=== PATIENT | female | born 1975 | race Caucasian/White ===

== ENCOUNTER 2019-06-15 07:06 | Emergency (ER) | payer BC ==
[2019-06-15 07:22] VITALS: BP 151/90
--- NOTE | 2019-06-15 07:31 | UC ---
Throat Pain/Nasal Barrett HPI - HPI Summary HPI Summary: 44-year-old woman comes in with a chief complaint of sore throat. Started 4 days ago. Hurts more when she swallows.'s been taken ibuprofen which does help with the pain. No fevers measured. Has minimal rhinorrhea. She does have a cough she wonders if it's from her throat hurting. Initially felt like her throat was swollen. Has improved now. - History of Current Complaint Chief Complaint: UCGeneralIllness Stated Complaint: SORE THROAT Time Seen by Provider: 06/15/19 07:13 Hx Last Menstrual Period: 06/14/19 Pain Intensity: 4 - Allergies/Home Medications Allergies/Adverse Reactions: Allergies Allergy/AdvReac Type Severity Reaction Status Date / Time No Known Allergies Allergy Verified 06/15/19 07:14 Home Medications: Home Medications Dm/PE/Acetaminophen/Chlorphenr [Cold Multi-Symptom Day-Night] 1 each PO ONCE [History Confirmed 06/15/19] Ibuprofen TAB* [Motrin TAB* 800 MG] 800 mg PO ONCE 06/15/19 [History Confirmed 06/15/19] guaiFENesin [Mucinex] 600 mg PO ONCE 06/15/19 [History Confirmed 06/15/19] PMH/Surg Hx/FS Hx/Imm Hx Previously Healthy: Yes - Surgical History Surgical History: Yes Surgery Procedure, Year, and Place: sinus surgery 2010 - Family History Known Family History: Positive: Non-Contributory - Social History Alcohol Use: None Substance Use Type: None Smoking Status (MU): Never Smoked Tobacco Review of Systems All Other Systems Reviewed And Are Negative: Yes Constitutional: Positive: Other - see hpi Skin: Positive: Negative Eyes: Positive: Negative ENT: Positive: Sore Throat, Nasal Discharge, Sinus Congestion Respiratory: Positive: Cough Cardiovascular: Positive: Negative Gastrointestinal: Positive: Negative Motor: Positive: Negative Neurovascular: Positive: Negative Musculoskeletal: Positive: Negative Neurological: Positive: Negative Psychological: Positive: Negative Is Patient Immunocompromised?: No Physical Exam Triage Information Reviewed: Yes Appearance: No Pain Distress, Well-Nourished, Ill-Appearing - mild Vital Signs: Initial Vital Signs Temp 98.8 F 06/15/19 07:15 Pulse 95 06/15/19 07:15 Resp 18 06/15/19 07:15 BP 151/90 06/15/19 07:15 Pulse Ox 96 06/15/19 07:15 Vital Signs Reviewed: Yes Eye Exam: Normal Eyes: Positive: Conjunctiva Clear ENT: Positive: Pharyngeal erythema, Uvula midline - Oropharynx open. No evidence of peritonsillar abscess at this time.. Negative: Tonsillar swelling, Muffled voice, Hoarse voice Neck: Positive: Supple Respiratory: Positive: Lungs clear, Normal breath sounds, No respiratory distress Cardiovascular: Positive: RRR Musculoskeletal: Positive: Strength Intact, ROM Intact Neurological: Positive: Alert, Muscle Tone Normal Psychological: Positive: Age Appropriate Behavior Skin Exam: Normal Throat Pain/Nasal Course/Dx - Course Course Of Treatment: DISCUSSED VIRAL VERSES BACTERIAL INFECTIONS AND THE ROLE OF ANTIBIOTICS. THE PATIENT PREFERS TO BE ON ANTIBIOTICS AT THIS TIME. - Differential Dx/Diagnosis Provider Diagnosis: Pharyngitis Discharge ED - Sign-Out/Discharge Documenting (check all that apply): Patient Departure All imaging exams completed and their final reports reviewed: No Studies - Discharge Plan Condition: Stable Disposition: HOME Prescriptions: Amoxicillin PO (*) [Amoxicillin 875 MG (*)] 875 mg PO BID #20 tab Patient Education Materials: Pharyngitis (ED) Referrals: [facility] [Outside] Additional Instructions: FOLLOW UP WITH YOUR DOCTOR IF NOT COMPLETELY IMPROVED. GET REEVALUATED SOONER IF NOT IMPROVED OR WORSE OR ANY QUESTIONS OR CONCERNS. - Billing Disposition and Condition Condition: STABLE Disposition: Home
== END 2019-06-15 07:39 | disposition home or self-care (01) ==
LOC: UCEAST 07:06
DX: J02.9 Acute pharyngitis, unspecified (principal); J34.89 Other specified disorders of nose and nasal sinuses
CPT/HCPCS: 87651; 99202; G0463

== ENCOUNTER 2019-07-31 09:21 | Emergency (ER) | payer BC ==
[2019-07-31 11:23] VITALS: BP 130/85
--- NOTE | 2019-07-31 11:25 | UC ---
FLU HPI - HPI Summary HPI Summary: 44 yo female presents with flu-like symptoms. She tells me that for the last 2- 3 days she has had a sore throat, body aches, fatigue, and fever tmax 102F. She has been taking tylenol with good relief. She is eating, drinking, and tolerating po well. She did get a flu shot this year. Denies rash, SOB, abdominal pain, n/v - History of Current Complaint Chief Complaint: UCGeneralIllness Stated Complaint: FEVER AND SORE THROAT Time Seen by Provider: 07/31/19 11:25 Hx Obtained From: Patient Hx Last Menstrual Period: 06/30/19 Onset/Duration: Sudden Onset Severity Currently: Moderate Severity Initially: Moderate Pain Intensity: 6 Pain Scale Used: 0-10 Numeric - Allergy/Home Medications Allergies/Adverse Reactions: Allergies Allergy/AdvReac Type Severity Reaction Status Date / Time No Known Allergies Allergy Verified 07/31/19 11:23 Home Medications: Home Medications NK [No Home Medications Reported] 07/31/19 [History Confirmed 07/31/19] PMH/Surg Hx/FS Hx/Imm Hx - Additional Past Medical History Additional PMH: None - Surgical History Surgical History: Yes Surgery Procedure, Year, and Place: sinus surgery 2010 - Family History Known Family History: Positive: Non-Contributory - Social History Lives: With Family Alcohol Use: None Substance Use Type: None Smoking Status (MU): Never Smoked Tobacco Review of Systems All Other Systems Reviewed And Are Negative: No Constitutional: Positive: Fever, Fatigue, Other - Body aches Skin: Positive: Negative Eyes: Positive: Negative ENT: Positive: Sore Throat Respiratory: Positive: Negative Cardiovascular: Positive: Negative Gastrointestinal: Positive: Negative Neurological/Mental Status: Positive: Negative Psychological: Positive: Negative Physical Exam - Summary Physical Exam Summary: GENERAL: NAD. WDWN. No pain distress. SKIN: No rashes, sores, lesions, or open wounds. HEENT: Head: AT/NC Eyes: EOM intact. Conjunctiva clear without inflammation or discharge. Ears: Hearing grossly normal. TMs intact, no bulging, erythema, or edema. Nose: Nasal mucosa pink and moist. NTTP maxillary and frontal sinus. Throat: Posterior oropharynx without exudates, erythema, or tonsillar enlargement. Uvula midline. NECK: Supple. Nontender. No lymphadenopathy. CHEST: CTAB. No r/r/w. No accessory muscle use. Breathing comfortably and in no distress. CV: RRR. Pulses intact. Cap refill <2seconds NEURO: Alert. PSYCH: Age appropriate behavior. Triage Information Reviewed: Yes Vital Signs: Initial Vital Signs Temp 98.2 F 07/31/19 11:17 Pulse 92 07/31/19 11:17 Resp 18 07/31/19 11:17 BP 130/85 07/31/19 11:17 Pulse Ox 100 07/31/19 11:17 Laboratory Tests 07/31/19 07/31/19 11:47 11:59 Influenza A (Rapid) Negative Influenza B (Rapid) Negative Group A Strep Rapid Negative Vital Signs Reviewed: Yes Flu Course/Dx - Course Course Of Treatment: POC strep and flu negative. Suspect viral illness - Differential Dx/Diagnosis Provider Diagnosis: Viral syndrome Discharge ED - Sign-Out/Discharge Documenting (check all that apply): Patient Departure All imaging exams completed and their final reports reviewed: No Studies - Discharge Plan Condition: Stable Disposition: HOME Patient Education Materials: Viral Syndrome (ED) Referrals: Chang Oden MD [Primary Care Provider] - Additional Instructions: FLU AND STREP TEST NEGATIVE TODAY Your symptoms are likely from a viral infection. Viral infections do not respond to antibiotics and are limited to the treatment of symptoms. Viral infections typically run their course in 7-10 days. Drink plenty of fluids, especially if you are running any fever. Use salt water gargles several times a day. Take over the counter acetaminophen (Tylenol) or ibuprofen (Advil, Motrin) according to directions as needed for pain or fever. You may also use Chloraseptic spray or Cepacol lonzenges according to directions which contain a numbing medication and can provide some temporary relief from a sore throat. Return here or follow up with your primary care provider in 7 days if symptoms persist. - Billing Disposition and Condition Condition: STABLE Disposition: Home
[2019-07-31 11:58] LABS: Influenza A Molecular Negative (Negative); Influenza B Molecular Negative (Negative)
== END 2019-07-31 12:17 | disposition home or self-care (01) ==
LOC: UCEAST 09:21
DX: B34.9 Viral infection, unspecified (principal); J02.9 Acute pharyngitis, unspecified; R53.83 Other fatigue; R50.9 Fever, unspecified
CPT/HCPCS: 87651; 99211; G0463